=== PATIENT | male | born 1990 | race African-American/Black ===

== ENCOUNTER 2018-10-02 08:36 | Emergency (ER) | payer OTHER | END 2018-10-02 09:23 | disposition home or self-care (01) | LOC: M ED 08:36 | DX: G57.93 Unspecified mononeuropathy of bilateral lower limbs (principal); X31.XXXA Exposure to excessive natural cold, initial encounter; Y92.89 Other specified places as the place of occurrence of the external cause; Y99.1 Military activity | CPT/HCPCS: 99282 ==

== ENCOUNTER 2018-10-05 17:42 | Emergency (ER) | payer OTHER | END 2018-10-05 19:55 | disposition left against medical advice (07) | LOC: M ED 17:42 | DX: Z53.29 Procedure and treatment not carried out because of patient's decision for other reasons (principal) ==